=== PATIENT | female | born 1980 | race Caucasian/White ===

== ENCOUNTER 2024-02-18 06:12 | Emergency (ER) | payer BC ==
[~2024-02-18] VITALS: Ht 167.6 cm; Wt 77.1 kg
[2024-02-18] MEDS: KETOROLAC TROMETHAMINE 30 MG/ML VIAL IV STA (07:04)
[2024-02-18] MEDS: DIPHENHYDRAMINE HCL INJ 50 MG/ML VIAL IV STA (07:04)
[2024-02-18] MEDS: SODIUM CHLORIDE 0.9% 1000ML 1,000 ML IV STA (07:04)
[2024-02-18] MEDS: METOCLOPRAMIDE HCL 10 MG/2ML VIAL IV STA (07:04)
[2024-02-18] MEDS: METHYLPREDNISOLONE SOD SUCC 125 MG/2ML VIAL IV STA (07:04)
[2024-02-18 08:29] VITALS: PULSE 76; RESP 16; TEMP 98.4; O2SAT 100
== END 2024-02-18 08:51 | disposition home or self-care (01) ==
LOC: FSED 06:30
DX: R51.9 Headache, unspecified (principal); I10 Essential (primary) hypertension; M32.9 Systemic lupus erythematosus, unspecified; M06.9 Rheumatoid arthritis, unspecified; Z11.52 Encounter for screening for COVID-19
CPT/HCPCS: 0223U; 70450; 80053; 80307; 81003; 81025; 85025; 87400; 96374; 96375; 99284; J1200; J1885; J2765; J2919; J7030